=== PATIENT | female | born 1975 | race Caucasian/White ===

== ENCOUNTER 2018-09-06 06:39 | Emergency (ER) | payer OTHER ==
[2018-09-06 06:58] VITALS: BP 151/90; PULSE 89; TEMP 98.3; BMI 39.9
--- NOTE | 2018-09-06 07:08 | PDOC ---
Attending Attestation - Resident Resident Name: Dennis Vinson - HPI HPI: 09/06/18 08:30 Pt presents to the ED complaining of a three day history of dysuria, urgency and frequency. Denies nausea or vomiting, fever or flank pain. - Physicial Exam PE: 09/06/18 08:31 Agree with resident exam. Patient is well appearing and in no acute distress. - Medical Decision Making 09/06/18 08:31 Pt presents to the ED complaining of dysuria, urgency and frequency consistent with UTI. Will check UA, discharge home with antibiotics if positive.
[2018-09-06 08:21] LABS: URINE APPEARANCE SLCLOUDY; URINE BILIRUBIN NEGATIVE (<2.0 mg/dL); URINE COLOR YELLOW; URINE GLUCOSE (UA) NEGATIVE (NEGATIVE); URINE KETONE NEGATIVE (NEGATIVE); URINE LEUK ESTERASE NEGATIVE (NEGATIVE); URINE NITRITE NEGATIVE (NEGATIVE); URINE PROTEIN 1+ (NEGATIVE); URINE UROBILINOGEN NEGATIVE mg/dL (0.2-1.0)
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
[2018-09-06 08:43] LABS: EPI CELLS RARE /HPF (FEW); URINE BACTERIA RARE /hpf (NONE SEEN); URINE HYALINE CAST 2 /lpf; URINE MUCUS MANY
== END 2018-09-06 09:58 | disposition home or self-care (01) ==
LOC: JER 06:39
DX: N39.0 Urinary tract infection, site not specified (principal); F41.8 Other specified anxiety disorders; F32.9 Major depressive disorder, single episode, unspecified; Z87.39 Personal history of other diseases of the musculoskeletal system and connective tissue
CPT/HCPCS: 81003; 81015; 87086; 99282-25

== ENCOUNTER 2019-01-24 12:45 | Emergency (ER) | payer OTHER ==
[2019-01-24 12:54] VITALS: BP 117/80; PULSE 100; TEMP 98.2; BMI 38.2
--- NOTE | 2019-01-24 13:19 | PDOC ---
History of Present Illness - General Chief Complaint: Weakness Stated Complaint: SENT BY PCP FOR IV HYDRATION Time Seen by Provider: 01/24/19 13:19 - History of Present Illness Initial Comments: 43 year old female with PMH of asthma and recent bariatric surgery (one month prior) presenting with light headedness and weakness for the past week in the setting of decreased oral hydration because of gastric surgery and inability to tolerate her full fluid amount. She saw her gastric surgeon who recommended she come to the ED for IV hydration. Denies fevers, chills, nausea, vomiting, diarrhea, syncope, chest pain, or other symptoms. 01/24/19 15:57 Past History - Past Medical History Allergies/Adverse Reactions: Allergies Allergy/AdvReac Type Severity Reaction Status Date / Time No Known Allergies Allergy Verified 01/24/19 12:54 Home Medications: Ambulatory Orders Cyclobenzaprine HCl [Flexeril -] 10 mg PO TID 01/01/16 Ipratropium [place] 15 ml NS ASDIR 01/01/16 Meloxicam [Mobic] 7.5 mg PO ASDIR 01/01/16 traMADol HCL [Ultram] 50 mg PO Q6H 01/01/16 Hydrochlorothiazide [Hctz -] 25 mg PO DAILY 09/06/18 Nitrofurantoin Monohyd/M-Cryst [Macrobid -] 100 mg PO BID 5 Days #10 capsule 09/24 Phenazopyridine HCl [Pyridium -] 200 mg PO TID 2 Days #6 tablet 09/06/18 Anemia: No Asthma: No Cancer: No Cardiac Disorders: No CVA: No COPD: No CHF: No DVT: No Dementia: No Diabetes: No Dialysis: No GI Disorders: No Disorders: No HTN: No Hypercholesterolemia: No Psychiatric Problems: Yes (depression, anxiety) - Surgical History Abdominal Surgery: Yes Appendectomy: Yes - Immunization History Immunization Up to Date: Yes - Suicide/Smoking/Psychosocial Hx Smoking Status: Yes Smoking History: Never smoked Have you smoked in the past 12 months: No Number of Cigarettes Smoked Daily: 0 Information on smoking cessation initiated: No Hx Alcohol Use: No Drug/Substance Use Hx: No Substance Use Type: None Review of Systems - Review of Systems Constitutional: No: Chills, Diaphoresis, Fever HEENTM: No: Eye Pain, Blurred Vision, Tearing Respiratory: No: Cough, Orthopnea, Shortness of Breath Cardiac (ROS): Yes: Lightheadedness. No: Chest Pain, Irregular Heart Rate, Palpitations, Syncope, Chest Tightness ABD/GI: Yes: Poor Appetite. No: Diarrhea, Nausea, Vomiting : No: Burning, Dysuria, Discharge Musculoskeletal: No: Back Pain, Joint Swelling Integumentary: No: Erythema, Flushing, Lesions Neurological: No: Numbness, Paresthesia Psychiatric: No: Anxiety, Depression Hematologic/Lymphatic: No: Anemia, Blood Clots *Physical Exam - Vital Signs Last Vital Signs Temp Pulse Resp BP Pulse Ox 98.2 F 100 H 19 117/80 100 01/24/19 12:52 01/24/19 12:52 01/24/19 12:52 01/24/19 12:52 01/24/19 12:52 - Physical Exam General Appearance: Yes: Nourished, Appropriately Dressed. No: Apparent Distress HEENT: positive: EOMI, MARILU, Normal Voice. negative: Normal ENT Inspection ( dry mm) Neck: positive: Trachea midline, Normal Thyroid, Supple. negative: Tender, Rigid Respiratory/Chest: positive: Lungs Clear, Normal Breath Sounds. negative: Chest Tender, Respiratory Distress, Accessory Muscle Use Cardiovascular: positive: Regular Rhythm, Tachycardia Gastrointestinal/Abdominal: positive: Normal Bowel Sounds, Flat, Soft. negative : Tender Lymphatic: negative: Adenopathy, Tenderness Musculoskeletal: positive: Normal Inspection. negative: Decreased Range of Motion Extremity: positive: Normal Capillary Refill, Normal Inspection, Normal Range of Motion. negative: Tender Integumentary: positive: Normal Color, Dry, Warm Neurologic: positive: Fully Oriented, Alert, Normal Mood/Affect, Normal Response , Motor Strength 5/5 ED Treatment Course - LABORATORY CBC & Chemistry Diagram: 01/24/19 14:10 01/24/19 13:59 Medical Decision Making - Medical Decision Making 43 year old female one month s/p bariatric surgery with lower PO food and fluid toleration than expected presnetingfor IV hydration for her bariatric surgeon's office. Her labs are wnl with exception of slight hyperkalemia in the setting of hemolysis but EKG demonstrating rate 76, pr interval 166, RS 90, WTc 429, and normal axis. No sign of brugada or WPW. Symptoms all improved after 2L NS. Will DC with follow up and return precautions. 01/24/19 16:29 *DC/Admit/Observation/Transfer Diagnosis at time of Disposition: Dehydration - Discharge Dispostion Disposition: HOME Condition at time of disposition: Improved Decision to Admit order: No - Referrals Referrals: Sang Villarreal MD [Primary Care Provider] - - Patient Instructions Printed Discharge Instructions: DI for Dehydration -- Adult Additional Instructions: Please try to follow your bariatric surgeons diet. Please stay as hydrated as possible. Please follow up with bariatric surgeon for further follow up. Return to the ED if you have new or worsening symptoms. - Post Discharge Activity
[2019-01-24 14:29] LABS: BASO % 0.3 % (0-2.0); EOS % 0.9 % (0-4.5); HEMATOCRIT 42.7 % (32.4-45.2); HEMOGLOBIN 14.1 GM/dL (10.7-15.3); LYMPH % 27.8 % (8-40); MCH 28.1 pg (25.7-33.7); MCHC 33.1 g/dl (32.0-36.0); MEAN CELL VOLUME 84.7 fl (80-96); MEAN PLT VOLUME 9.8 fl (7.5-11.1); MONO % 4.7 % (3.8-10.2); NEUT % 66.3 % (42.8-82.8); PLATELET COUNT 238 K/MM3 (134-434); RBC 5.04 M/mm3 (3.60-5.2); RDW 14.2 % (11.6-15.6); WHITE BLOOD COUNT 10.9 K/mm3 (4.0-10.0)
--- NOTE | 2019-01-24 15:02 | PDOC ---
Documentation entered by Crys Vences SCRIBE, acting as scribe for Derrell Ramos MD. Derrell Ramos MD: This documentation has been prepared by the Vangie hicks Xhesika, SCRIBE, under my direction and personally reviewed by me in its entirety. I confirm that the documentation accurately reflects all work, treatment, procedures, and medical decision making performed by me. Attending Attestation - Resident Resident Name: Osvaldo Estrada - ED Attending Attestation I have performed the following: I have examined & evaluated the patient, The case was reviewed & discussed with the resident, I agree w/resident's findings & plan, Exceptions are as noted - HPI HPI: 01/24/19 14:31 The patient is a 43 year old female, with a significant PMH of depression, and anxiety, s/p bariatric surgery last month at [facility] who presents to the emergency department for weakness and lightheadedness. The patient was sent in by her PCP , Dr. Horton for IV hydration because the patient has had generally decreased PO intake, parotuc. The patient denies chest pain, shortness of breath. The patient denies fever, chills, nausea, vomiting, diarrhea or constipation. The patient denies dysuria, frequency, urgency or hematuria. Allergy: NKDA Surgical History: Appendectomy ( 1991), Septoplasty ( 2003) Social History: None reported PCP: Dr. Jamison Horton - Physicial Exam PE: 01/24/19 15:00 Vitals as noted, afebrile, heart rate 80s seated in chair during my evaluation Well-appearing, slightly dry mucosa, no jaundice or pallor Heart is regular, lungs are clear No audible murmur Abdomen benign Neurologically intact - Medical Decision Making 01/24/19 15:01 43-year-old female with recent bariatric surgery sent by her physician for likely mild dehydration, no evidence of acute infectious process. Has no cardiopulmonary or abdominal complaints, hemodynamically here. Check basic labs IV fluid rehydration Reassess Heart Score/ECG Review #1 ECG reviewed & interpreted by me at: 15:53 General ECG Interpretation: Sinus Rhythm, Normal Rate (76), Normal Intervals ( qtc 429), No acute ischemic changes
[2019-01-24 15:09] LABS: ALBUMIN 3.7 g/dl (3.4-5.0); BILIRUBIN,TOTAL 0.3 mg/dL (0.2-1); CALCIUM 8.8 mg/dL (8.5-10.1); CREATININE 0.7 mg/dL (0.55-1.3); POTASSIUM 5.7 mmol/L (3.5-5.1); TOT PROT 7.3 g/dl (6.4-8.2)
[2019-01-24] MEDS ORDERED: SODIUM CHLORIDE 0.9% 500 ML INFUS.BAG IV ONE ×2 (16:31→16:32)
--- NOTE | 2019-01-25 13:05 | EKG ---
Test Reason : Blood Pressure : / mmHG Vent. Rate : 076 BPM Atrial Rate : 076 BPM P-R Int : 166 ms QRS Dur : 090 ms QT Int : 382 ms P-R-T Axes : 057 039 011 degrees QTc Int : 429 ms NORMAL SINUS RHYTHM LOW VOLTAGE QRS BORDERLINE ECG WHEN COMPARED WITH ECG OF 09-JUL-2013 17:36, NO SIGNIFICANT CHANGE WAS FOUND Confirmed by LOTTIE MONTE MD ([id number]) on 01/25/2019 1:04:47 PM Referred By: Confirmed By:LOTTIE MONTE MD
== END 2019-01-24 16:56 | disposition home or self-care (01) ==
LOC: JER 12:45
PROC: 3E0337Z Introduction of Electrolytic and Water Balance Substance into Peripheral Vein, Percutaneous Approach (ICD-10-PCS; principal; 2019-01-24)
DX: E86.0 Dehydration (principal); Z98.84 Bariatric surgery status
CPT/HCPCS: 36415; 80053; 85025; 93005; 93010; 99281-25